=== PATIENT | male | born 1985 | race Caucasian/White ===

== ENCOUNTER 2016-07-16 19:23 | Inpatient (IN) | payer OTHER ==
--- NOTE | ~2016-07-16 | CR63 ---
[facility] A Service of [facility] & [facility] RADIOLOGY TEXT RESULTS PATIENT: EDITH KENDALL LOCATION: C2A 219-01 : 83 UNIT #: [id number] AGE: [address]: Hunter Bruno MD SEX: M ORDER DR: [id number] [facility] [address] [facility]. [place], [place] [address] [id number] MR#: [id number] Acc #: [id number] NAME: EDITH KENDALL : 1985 SEX: M STUDY DATE/TIME: 07/17/2016 09:00 UNIT: [facility] ROOM: 219 STUDY DESCRIPTION: CR Chest 2 View Attending Physician: Hunter Bruno M.D. Ordering Physician: Madie Chauhan M.D. Primary Care Physician: No Primary Care Physician MEDICAL IMAGING REPORT This report is preliminary unless electronic signature is present EXAM Chest 2 views 07/17/2016 0900 hours. HISTORY 31-year-old with shortness of air, fever for 1 day, pancreatitis. COMPARISON 12/04/2006 FINDINGS Upright PA and lateral views of the chest demonstrate normal cardiac, mediastinal and hilar contours. The patient has underlying scoliosis. The lateral views suggest hazy density posteriorly which I believe is technical as the patient is not truly upright and there are overlying soft tissues. No definite acute pulmonary or pleural findings. IMPRESSION No definite acute cardiopulmonary findings. On the lateral view there is haziness over the posterior hemithorax on the 2 lateral views but there appears to be overlying artifact and I would favor that this is artifact as there is no corresponding abnormality seen on the PA view. The patient is not truly upright on the lateral views which may account for this finding. Dictated by... Shy Tabares M.D. THIS IS AN ELECTRONICALLY VERIFIED REPORT Shy Tabares M.D. at 07/17/2016 2:29 PM BROOKE/libra TD: 07/17/2016 14:10 JOB #: [id number] [facility] A Service of [facility] & [facility] RADIOLOGY TEXT RESULTS PATIENT: EDITH KENDALL LOCATION: [place] [address]- : 83 UNIT #: [id number] AGE: [address]: Hunter Bruno MD SEX: M ORDER DR: MEDICAL IMAGING REPORT Page 1 of 1 COPY
--- NOTE | ~2016-07-16 | US67 ---
[facility] A Service of [facility] & [facility] RADIOLOGY TEXT RESULTS PATIENT: EDITH KENDALL LOCATION: C2A 219-01 : 83 UNIT #: [id number] AGE: [address]: Hunter Bruno MD SEX: M ORDER DR: [id number] [facility] [address] [facility]. [place], [place] [address] [id number] I MR#: [id number] Acc #: [id number] NAME: EDITH KENDALL : 1985 SEX: M STUDY DATE/TIME: 07/17/2016 7:36 UNIT: C2A ROOM: 219 STUDY DESCRIPTION: US Gallbladder Attending Physician: Hunter Bruno M.D. Ordering Physician: Nikki Restrepo M.D. Primary Care Physician: No Primary Care Physician MEDICAL IMAGING REPORT This report is preliminary unless electronic signature is present EXAM Gallbladder ultrasound 07/17/2016 INDICATION 31-year-old male with pain for a day. Pain extending into the back. No surgical history. TECHNIQUE Sonographic imaging of the gallbladder was performed. COMPARISON Correlation is made with CT 07/16/2016. FINDINGS Pancreas not well visualized or assessed. Visualized aspects within normal limits. The liver measures 17.1 cm long axis. No focal liver mass or intrahepatic ductal dilatation. Extrahepatic common bile duct measures 5 mm. Right kidney nonobstructed and measures 10.8 cm. Trace amount of ascites adjacent to the right kidney and the liver corresponding to a small amount of ascites in the upper abdomen on CT last night. The gallbladder wall measures up to about 3 mm. There is some echogenic sludge probably representing tumefactive sludge given somewhat oval or rounded configuration within the gallbladder lumen. The technologist reported the possibility of small stones within the sludge, not well demonstrated on the submitted images. No sonographic Gotti's sign was described by the technologist. There is some fluid intimately associated with the gallbladder wall probably representing fluid from the ascites rather than true pericholecystic fluid or gallbladder wall edema. HIDA scan may be useful for further assessment of this patient if there is persistent clinical concern for acute cholecystitis. IMPRESSION STS. [facility] A Service of [facility] & [facility] RADIOLOGY TEXT RESULTS PATIENT: EDITH KENDALL LOCATION: [facility] 219-01 : 83 UNIT #: [id number] AGE: [address]: Hunter Bruno MD SEX: M ORDER DR: 1. Overall constellation of features related to the gallbladder are nonspecific. There is no distinct evidence of acute cholecystitis on ultrasound, particularly given lack of cholelithiasis and it would be unusual to encounter acalculous acute cholecystitis in the outpatient setting. No sonographic Gotti's sign or ductal dilatation. Probable free fluid from upper abdominal ascites tracking into the gallbladder fossa. If there is persistent clinical concern for acute cholecystitis, HIDA scan may be useful for further assessment. 2. There is no intra- or extrahepatic biliary ductal dilatation. 3. The remainder of the examination is negative. Pancreas not well visualized or assessed. STAT * RESULT Dictated by... Sathish Mauricio M.D. THIS IS AN ELECTRONICALLY VERIFIED REPORT Sathish Mauricio M.D. at 07/17/2016 11:10 AM Sai TD: 07/17/2016 08:52 JOB #: [id number] MEDICAL IMAGING REPORT Page 1 of 1 COPY
--- NOTE | ~2016-07-16 | CT2 ---
[facility] A Service of [facility] RADIOLOGY TEXT RESULTS PATIENT: EDITH KENDALL LOCATION: [facility] 219-01 : 83 UNIT #: [id number] AGE: [address]: Hunter Bruno MD SEX: M ORDER DR: [id number] [facility] [address] [facility]. [place], [place] [address] [id number] I MR#: [id number] Acc #: [id number] NAME: EDITH KENDALL : 1985 SEX: M STUDY DATE/TIME: 07/16/2016 20:25 UNIT: CEDOF ROOM: 92348 STUDY DESCRIPTION: CT Abd and Pelv W Cont Attending Physician: Madie Chauhan M.D. Ordering Physician: Nikki Restrepo M.D. Primary Care Physician: Primary Care Physician No MEDICAL IMAGING REPORT This report is preliminary unless electronic signature is present EXAM CT abdomen and pelvis with contrast, 07/16/2016 HISTORY 31-year-old male with abdominal pain beginning this morning. History of pancreatitis and drug abuse. COMPARISON CT abdomen and pelvis 10/03/2012 TECHNIQUE Helical scan performed through the abdomen and pelvis following administration of IV contrast. Coronal and sagittal reformatted images. This CT exam was performed with one or more of the following radiation dose reduction techniques: automatic exposure control, adjustment of mA and/or kV according to patient size, and iterative reconstruction. FINDINGS Visualized lung bases are unremarkable. Diffuse fatty infiltration of the liver is again noted. There is borderline hepatomegaly. The spleen, gallbladder, both adrenal glands, and both kidneys within normal limits. There is a small amount of abdominal and pelvic ascites. There is somewhat prominent fluid around the pancreas and underlying pancreatic inflammation is not excluded. Correlation with serum analyze and lipase for possible acute pancreatitis. Abdominal aorta normal in course and caliber without dissection. Small bowel is unremarkable without obstruction. Appendix is not clearly visualized. No definite pericecal inflammation. The colon is unremarkable. Moderate stool burden. No free intraperitoneal air. [facility] A Service of [facility] & [facility] RADIOLOGY TEXT RESULTS PATIENT: EDITH KENDALL LOCATION: [facility] [address] : 83 UNIT #: [id number] AGE: [address]: Hunter Bruno MD SEX: M ORDER DR: Urinary bladder and prostate gland unremarkable. No acute bony abnormality. IMPRESSION 1. Borderline hepatomegaly with diffuse hepatic steatosis again noted. 2. Small amount of abdominal and pelvic ascites. There is somewhat prominent fluid noted around the pancreas, which is similar to the prior examination. Underlying pancreatic inflammation cannot be excluded. Correlation with serum analyze and lipase levels for acute pancreatitis recommended. 3. Appendix not clearly visualized. No pericecal inflammation. 4. Moderate stool burden. Dictated by... Sudhakar Guerrero M.D. THIS IS AN ELECTRONICALLY VERIFIED REPORT Sudhakar Guerrero M.D. at 07/17/2016 4:28 PM ROMIE/earnestine TD: 07/17/2016 02:16 JOB #: [id number] MEDICAL IMAGING REPORT Page 1 of 1 COPY
--- NOTE | ~2016-07-16 | DS ---
Unit #: [id number] #: [id number] Patient: EDITH KENDALL [id number] [address] [address] [id number] I MR#: [id number] NAME: EDITH KENDALL ROOM: 219 Age: 31 Sex: M Admission Date: 07/16/2016 : 1985 Discharge Date: 07/19/2016 Attending Physician: Hunter Bruno M.D. Primary Care Physician: Primary Care Physician No DISCHARGE SUMMARY FINAL DIAGNOSES 1. Acute pancreatitis with markedly elevated LFTs. 2. Transaminitis. SECONDARY DIAGNOSES 1. Gastroesophageal reflux disease. 2. Opioid addiction. Currently with methadone clinic somewhere in [place]. CONSULTANTS None. HOSPITAL COURSE The patient is a 71-year-old gentleman who basically presented with right upper quadrant pain and abdominal pain. He was diagnosed with acute pancreatitis with elevated LFTs. He is a methamphetamine user and got accepted at the clinic at [facility]. He stated he was on a tapering dose of methadone. He was admitted and given fluids, n.p.o. and medication for his pain. He has improved significantly and has been able to tolerate a regular diet. He was evaluated and deemed stable for discharge. He will discharge home in stable condition for outpatient followup. He is scheduled to follow up with me in the office in the next one to two days. DISCHARGE MEDICATIONS Home medications of 1. Methadone 40 mg p.o. daily, which he gets from the methadone clinic in [facility]. 2. Will discharge him on Protonix 40 mg p.o. daily. PLAN 1. The plan will be to repeat his CBC, CMP and liver function tests. Hepatitis panel has been obtained. 2. Will follow his LFTs. Time spent coordinating discharge was about 22 minutes. Dictated by... Kyra Shaffer Unit #: [id number] #: [id number] Patient: EDITH KENDALL TD: 07/19/2016 11:18 JOB #: [id number] DISCHARGE SUMMARY Page 1 of 1 X Ana Mccarthy MD SUMMARY
--- NOTE | ~2016-07-16 | HP ---
Unit #: [id number] #: [id number] Patient: EDITH KENDALL [id number] [address] [place], [place] [address] [id number] MR#: [id number] NAME: EDITH KENDALL ROOM: Age: 31 Sex: M Admission Date: 07/16/2016 : 1985 Attending Physician: Nikki Restrepo M.D. Primary Care Physician: Primary Care Physician No HISTORY AND PHYSICAL CHIEF COMPLAINT Acute pancreatitis, with markedly elevated LFTs. HISTORY OF PRESENT ILLNESS This 31-year-old male with previous history of alcohol-induced pancreatitis, GERD, transaminitis, opiate addiction in the methadone clinic, is admitted for pancreatitis. The patient states that he was well until 1-1/2 weeks ago when he developed fevers up to 103 degrees. Yesterday, developed nausea, and then upper abdominal pain radiating to his back associated with nausea and vomiting, similar to his previous episodes of pancreatitis. No alcohol for the past five years. He does abuse methamphetamines once or twice a week. He presented to this emergency department this evening, afebrile, with laboratory as well as x-ray results consistent with pancreatitis. His LFTs are noted to be markedly elevated at about 3000. Patient states that he was taking significant amounts of Tylenol, last dose of Tylenol was perhaps two days ago. He has used injectable drugs in the past as well. In the ER, the patient was given morphine, Zofran, bolused with saline, and a dose of Dilaudid. He still is experiencing pain. PAST MEDICAL HISTORY 1. Alcohol-induced pancreatitis which the patient states that he required treatment two or three times in the past. Has not abused alcohol for some years. 2. GERD. 3. History of elevated LFTs in the past. 4. Opiate addiction, in the methadone clinic. 5. Bilateral inguinal hernia repairs. ALLERGIES None. HOME MEDICATIONS Methadone, about 54 mg daily, through the [facility]. Patient states he is taking a tapering dose of methadone. SOCIAL HISTORY The patient lives with his , father and family. Smokes about one-half pack per day of tobacco. No longer abuses alcohol. Does, however, abuse methamphetamines once or twice a week. FAMILY HISTORY Negative for liver disease or gallbladder disease. Unit #: [id number] #: [id number] Patient: EDITH KENDALL REVIEW OF SYSTEMS Notable for abdominal pain, nausea and vomiting, pancreatitis, GERD, polysubstance abuse, abnormal LFTs in the past, above-mentioned surgeries, low-grade fevers recently. All other systems were reviewed and are negative. PHYSICAL EXAMINATION VITAL SIGNS: Temperature 98.5, pulse 82, respirations 18, blood pressure 110/83, O2 saturation 100% on room air. GENERAL: 31-year-old uncomfortable-appearing male. HEENT: Eyes PERRLA. Extraocular muscles are intact. Pharynx with extremely poor dentition. NECK: Supple without adenopathy or thyromegaly. CHEST: Clear. HEART: Normal S1, S2 without murmur. ABDOMEN: Bowel sounds are present. Patient has generalized abdominal tenderness with some guarding. Perhaps more so in the upper abdomen however. No definite hepatosplenomegaly or masses. EXTREMITIES: Without edema. No splinter hemorrhages noted over the fingernail beds. NEUROLOGIC: Awake, alert, oriented. Cranial nerves are intact. Equal strength throughout. DIAGNOSTIC STUDIES LABORATORY: Hematocrit 43.1, normal white count, platelet count. INR 1.6. SMA-12 glucose 124, sodium 133, chloride 99, calcium 8.3, albumin 3.4, AST 3700, ALT 3200, alkaline phosphatase 120, amylase 213, lipase 9056. IMAGING: CT scan borderline hepatomegaly with hepatic steatosis. Small amount of abdominal and pelvic ascites. Fluid around the pancreas consistent with pancreatitis which was noted in the past as well. ASSESSMENT 1. Acute pancreatitis. The patient does have a previous history of alcohol-induced pancreatitis but denies alcohol use recently. 2. Opiate addiction in the methadone clinic. 3. Markedly elevated liver function tests, rule out acute hepatitis. The patient, however, was using Tylenol up until two days ago. 4. Methamphetamine abuse. 5. Fevers for the past 1-1/2 weeks. 6. Extremely poor dentition secondary to methamphetamines. PLAN 1. Aggressive IV fluids. 2. Check HIV, hepatitis profile, blood cultures, urinalysis, and chest x-ray. 3. Triglyceride level and gallbladder ultrasound. 4. Check urine tox screen. 5. DVT and gastritis prophylaxis. 6. Will check acetaminophen level. 7. Will verify methadone dose with [facility]. 8. Consultants and further workup depending on above. Unit #: [id number] #: [id number] Patient: EDITH KENDALL Dictated by Kyra Cisneros/beto TD: 07/16/2016 22:03 JOB #: [id number] HISTORY AND PHYSICAL Page 1 of 1 X Madie Chauhan MD X HISTORY AND PHYSICAL
--- NOTE | ~2016-07-16 | HP ---
Unit #: [id number] #: [id number] Patient: EDITH KENDALL [id number] [address] [address] [id number] I MR#: [id number] NAME: EDITH KENDALL ROOM: 40866 Age: 31 Sex: M Admission Date: 07/17/2016 : 1985 Attending Physician: Madie Chauhan M.D. Primary Care Physician: No Primary Care Physician HISTORY AND PHYSICAL ADDENDUM Acetaminophen level is less than 10. I did discuss the case with poison control. The patient's last dose of Tylenol was over 48 hours ago. He had taken 15 tablets a day for about 2 days prior to over 2 days ago. The patient likely has viral hepatitis. It would not benefit him to take Mucomyst at this time for possible excess Tylenol over two days ago. Dictated by Kyra Cisneros/feliciano TD: 07/17/2016 05:35 JOB #: [id number] HISTORY AND PHYSICAL Page 1 of 1 X Madie Chauhan MD HISTORY AND PHYSICAL
[2016-07-16 19:02] LABS: BASOPHIL# 0.1 X10e3 (0-0.3); BASOPHIL% 0.8 % (0-2.5); DIFF IND NO; EOSINOPHIL% 0.2 % (0.0-7.0); HEMATOCRIT 43.1 % (38.0-50.0); LYMPHOCYTE# 3.8 X10e3 (1.0-3.5); LYMPHOCYTE% 42.9 % (17.0-45.0); MEAN CELL VOLUME 92.5 FL (83-96); MEAN CORPUSCULAR HEMOGLOBIN 30.1 PG (28-34); MEAN CORPUSCULAR HGB CONC 32.5 g/dL (30-36); MEAN PLATELET VOLUME 8.3 FL (6.5-11.5); MONOCYTE# 0.5 X10e3 (0-1.0); NEUTROPHIL# 4.5 X10e3 (1.5-7.1); NEUTROPHIL% 50.1 % (40-75); PLATELET COUNT 205 X10e3 (140-420); RED BLOOD COUNT 4.66 X10e (3.90-5.60); RED CELL DISTRIBUTION WIDTH 13.6 % (11.0-15.5); WHITE BLOOD COUNT 8.9 X10e3 (4.0-10.5)
[~2016-07-16 19:23] MED LIST: BENTYL20 MG PO; FLEXERIL10 M1 PO; METHADONE; METHADONE PO; PHENERGAN PO; PRILOSEC PO
[2016-07-16 20:04] LABS: ALBUMIN SERUM 3.4 g/dL (3.5-5.0); BILIRUBIN, DIRECT 0.6 mg/dL (0.0-0.2); BILIRUBIN,TOTAL 1.6 mg/dL (0.2-2.0); BUN/CREATININE RATIO 12.22; CALCIUM SERUM 8.3 mg/dL (8.4-10.2); CREATININE SERUM 0.9 mg/dL (0.6-1.4); GLOM FILT RATE Estimated 111.8 mL/min (>60); POTASSIUM 3.8 mmol/L (3.5-5.1); PROTEIN TOTAL SERUM 7.2 g/dL (6.0-8.3)
[2016-07-16 21:13] LABS: INR 1.6; PROTHROMBIN TIME (PATIENT) 17.4 SECONDS (9.6-11.5)
[2016-07-16 22:28] LABS: URINE SOURCE CLEAN CATCH
[2016-07-16 22:32] LABS: URINE APPEARANCE CLEAR; URINE BLOOD TRACE (NEG); URINE COLOR DK YELLOW; URINE GLUCOSE NEG (NEG); URINE KETONE NEG (NEG); URINE LEUKOCYTE ESTERASE NEG (NEG); URINE NITRATE NEG (NEG); URINE PROTEIN 1+ (NEG); URINE SPECIFIC GRAVITY 1.054 (1.003-1.035)
[2016-07-16 22:34] LABS: U HYALINE CASTS AUWI 0-2 /[LPF]; URBCS1 AUWI 0-2 /[HPF] (0-2); URINE BACTERIA AUWI NEG (NEGATIVE); URINE SQUAMOUS EPITHELIAL CELL NONE SEEN /[HPF]; UWBCS1 AUWI 0-2 (0-5)
[2016-07-16 22:42] LABS: AMPHETAMINE POS (NEG); BARBITURATES NEG (NEG); BENZODIAZEPINES POS (NEG); COCAINE NEG (NEG); MARIJUANA POS (NEG); OPIATES POS (NEG); TRICYCLIC ANTIDEPRESSANTS NEG (NEG); U METHADONE POS (NEG)
[2016-07-16 23:01] LABS: CULTURE INDICATED? NO; URINE BILIRUBIN NEG (NEG)
[2016-07-16 23:39] LABS: ALCOHOL BLOOD 7 mg/dL ([0,])
[2016-07-16 23:40] LABS: ACETAMINOPHEN <10 ug/mL
[2016-07-17 03:31] LABS: BASOPHIL% 0.6 % (0-2.5); EOSINOPHIL% 0.3 % (0.0-7.0); LYMPHOCYTE# 3.4 X10e3 (1.0-3.5); LYMPHOCYTE% 46.4 % (17.0-45.0); MEAN CELL VOLUME 91.1 FL (83-96); MEAN CORPUSCULAR HEMOGLOBIN 29.6 PG (28-34); MEAN CORPUSCULAR HGB CONC 32.5 g/dL (30-36); MEAN PLATELET VOLUME 8.2 FL (6.5-11.5); MONOCYTE# 0.5 X10e3 (0-1.0); MONOCYTE% 6.9 % (3.0-12.0); NEUTROPHIL# 3.4 X10e3 (1.5-7.1); NEUTROPHIL% 45.8 % (40-75); PLATELET COUNT 175 X10e3 (140-420); RED BLOOD COUNT 4.06 X10e (3.90-5.60); RED CELL DISTRIBUTION WIDTH 13.7 % (11.0-15.5); WHITE BLOOD COUNT 7.4 X10e3 (4.0-10.5)
[2016-07-17 03:32] LABS: DIFF IND NO
[2016-07-17 04:32] LABS: ALBUMIN SERUM 2.6 g/dL (3.5-5.0); BILIRUBIN,TOTAL 1.2 mg/dL (0.2-2.0); BUN/CREATININE RATIO 8.88; CALCIUM SERUM 7.4 mg/dL (8.4-10.2); CREATININE SERUM 0.9 mg/dL (0.6-1.4); GLOM FILT RATE Estimated 111.8 mL/min (>60); PROTEIN TOTAL SERUM 5.5 g/dL (6.0-8.3)
[2016-07-17 10:10] LABS: INR 1.5; PROTHROMBIN TIME (PATIENT) 15.9 SECONDS (9.6-11.5)
[2016-07-18 07:45] LABS: ALBUMIN SERUM 2.5 g/dL (3.5-5.0); BILIRUBIN,TOTAL 0.5 mg/dL (0.2-2.0); BUN/CREATININE RATIO 5.55; CALCIUM SERUM 7.6 mg/dL (8.4-10.2); CREATININE SERUM 0.9 mg/dL (0.6-1.4); GLOM FILT RATE Estimated 111.8 mL/min (>60); POTASSIUM 4.3 mmol/L (3.5-5.1); PROTEIN TOTAL SERUM 5.8 g/dL (6.0-8.3)
[2016-07-19 05:15] LABS: BASOPHIL% 0.6 % (0-2.5); EOSINOPHIL# 0.2 X10e3 (0-0.7); EOSINOPHIL% 3.2 % (0.0-7.0); HEMATOCRIT 37.7 % (38.0-50.0); HEMOGLOBIN 12.2 gm/dL (13.0-16.0); LYMPHOCYTE# 4.7 X10e3 (1.0-3.5); LYMPHOCYTE% 69.3 % (17.0-45.0); MEAN CELL VOLUME 93.4 FL (83-96); MEAN CORPUSCULAR HEMOGLOBIN 30.1 PG (28-34); MEAN CORPUSCULAR HGB CONC 32.2 g/dL (30-36); MEAN PLATELET VOLUME 7.9 FL (6.5-11.5); MONOCYTE# 0.8 X10e3 (0-1.0); MONOCYTE% 11.2 % (3.0-12.0); NEUTROPHIL# 1.1 X10e3 (1.5-7.1); NEUTROPHIL% 15.7 % (40-75); PLATELET COUNT 186 X10e3 (140-420); RED BLOOD COUNT 4.03 X10e (3.90-5.60); WHITE BLOOD COUNT 6.7 X10e3 (4.0-10.5)
[2016-07-19 05:18] LABS: DIFF IND NO
[2016-07-19 06:06] LABS: BUN/CREATININE RATIO 6.25; CALCIUM SERUM 8.2 mg/dL (8.4-10.2); CREATININE SERUM 0.8 mg/dL (0.6-1.4); GLOM FILT RATE Estimated 117.4 mL/min (>60); POTASSIUM 4.6 mmol/L (3.5-5.1)
[2016-07-19] MEDS ORDERED: METHADONE HCL10 MG PO (11:29)
[2016-07-19] MEDS ORDERED: PROTONIX PO (11:30)
[2016-07-23 19:39] LABS: HA AB IGM (HEPPAN) Nonreactive (()); HB CORE AB IGM (HEPPAN) Nonreactive (Nonreactive); HB S AG (HEPPAN) Nonreactive (Nonreactive); HEP C AB (HEPPAN) Reactive (Nonreactive)
== END 2016-07-19 15:16 | disposition home or self-care (01) | DRG 439 ==
LOC: CED 19:23 → CEDOF 21:50 → C2A 07-17 08:00
PROVIDERS: Emergency Medicine; Internal Medicine
DX: K85.90 Acute pancreatitis without necrosis or infection, unspecified (principal); F11.20 Opioid dependence, uncomplicated; K21.9 Gastro-esophageal reflux disease without esophagitis; F17.210 Nicotine dependence, cigarettes, uncomplicated; F15.10 Other stimulant abuse, uncomplicated; F10.21 Alcohol dependence, in remission
CPT/HCPCS: 71020; 74177; 76705; 80048; 80053; 80074; 80076; 80307; 81003; 82150; 82947; 83690; 84478; 85025; 85610; 85730; 86704; 87040; 87806; 96361; 96374; 96375; 99285; G0480; J1170; J2270; J2405; Q9967